=== PATIENT | female | born 1970 | race Caucasian/White ===

== ENCOUNTER 2017-10-21 18:27 | Emergency (ER) | payer OTHER ==
[~2017-10-21] VITALS: Ht 167.6 cm; Wt 64.6 kg
[~2017-10-21 18:27] MED LIST: COLLAGEN PO; IPRA1AER2 INH; MAGN250T3 PO; PYRI60TA2 PO; [UNRECOGNIZED DRUG - OTHER] PO
[2017-10-21 18:32] VITALS: TEMP 37; Ht 167.6 cm; Wt 64.6 kg
[2017-10-21] MEDS ORDERED: SODIUM CHLORIDE 0.9% 1000ML 1,000 ML IV STA (19:01)
--- NOTE | 2017-10-21 19:06 | EMERGENCY ROOM VISIT NOTE ---
History Report prepared by Yaima: Justin Huitron Under the Supervision of: Dr. Harinder Forte M.D. First contact with patient: 18:44 Chief Complaint: PAIN (GENERALIZED) Stated Complaint: WEAKNESS/NUMBNESS LEFT CALF, HEART PALPITATIONS History of Present Illness The patient is a 47 year old female who presents to the Emergency Room with complaints of constant numbness in her left calf that began this morning. She describes the numbness as severe. She has associated symptoms of rapid speech and bilateral chest pain that began today. Patient states the chest pain has resolved since coming to the ED. She adds that she has gotten 4 hours of sleep in past 3 nights. She adds she has felt "wobbly" the past couple of days. Patient denies back pain, headache, fevers, chills, nausea, and vomiting. She states she had similar symptoms a long time ago but did not get checked out by a doctor as the symptoms were resolved on their own. In addition, she was at Urgent Care prior to arrival for a sore on the left side of her mouth near a crowned tooth. Urgent Care informed her it was an ulcer. Patient has a history of bipolar disorder, which she states was later changed to a personality disorder, that she does not currently take medication for. She states that she has history of myasthenia gravis which she currently takes medication for. In addition, she has a history of a heart murmur. She adds that she took 3 amoxicillin prior to arrival. Patient states her last menstrual period was 3 weeks ago and that she has been having irregular cycles for the past 2 months. Patient denies wanting a CT scan. Patient adds that 8 days ago she was walking outside in her bare foot because she was feeling hot. After driving home without a coat and gloves on, she began having chest pains and "shooting pains" in her arms. She was checked out by EMS because she was worried about having frostbite. Source of History: patient Onset: this morning Position: other (Left calf) Symptom Intensity: severe Timing: constant Associated Symptoms: + chest pain, No fevers, No chills, No headache, No nausea, No vomiting Note: She has rapid speech. Review of Systems See HPI for pertinent positives and negatives. A total of ten systems were reviewed and were otherwise negative. Past Medical & Surgical Medical Problems: (1) Asthma (2) Bronchitis (3) Myasthenia gravis Family History Hypertension Social History Smoking Status: Former Smoker Alcohol Use: occasionally Drug Use: none Marital Status: Housing Status: lives with family Occupation Status: employed Current/Historical Medications Scheduled Ascorbic Acid (Ascorbic Acid), 500 MG PO 3XWK Cholecalciferol (Vitamin D3 Maximum Streng), 5,000 UNITS PO 3XWK Silver Sulfadiazine (Silvadene), 1 APPLN TOP BID Scheduled PRN Ipratropium-Albuterol (Combivent Respimat), 1 PUFF INH QID PRN for Wheezing Allergies Coded Allergies: Ciprofloxacin (Verified Allergy, Unknown, UNKN, 07/03/14) Physical Exam Vital Signs Date Time Temp Pulse Resp B/P (MAP) Pulse Ox O2 Delivery O2 Flow Rate FiO2 10/21/17 21:49 76 18 129/74 98 10/21/17 18:32 37.0 72 16 137/79 98 Room Air Physical Exam GENERAL: Awake, alert, anxious-appearing with pressure tangential speech, in no acute distress HENT: Normocephalic, atraumatic. Oropharynx unremarkable. Left lower gumline healing ulceration. No fluctuant. Dry mucous membranes. EYES: Normal conjunctiva. Sclera non-icteric. NECK: Supple. No nuchal rigidity. FROM. No JVD. RESPIRATORY: Clear to auscultation. CARDIAC: Regular rate, normal rhythm. Extremities warm and well perfused. Pulses equal. brisk cap refill. ABDOMEN: Soft, non-distended. No tenderness to palpation. No rebound or guarding. No masses. RECTAL: Deferred. MUSCULOSKELETAL: Chest examination reveals no tenderness. The back is symmetrical on inspection without obvious abnormality. There is no CVA tenderness to palpation. No joint edema. LOWER EXTREMITIES: Calves are equal size bilaterally and non-tender. No edema. No discoloration. NEURO: Normal sensorium. No sensory or motor deficits noted. SKIN: No rash or jaundice noted. warm/dry. Medical Decision & Procedures ER Provider Diagnostic Interpretation: Radiology results as stated below per my review and radiologist interpretation: CHEST 1 VW FRONT-NOT PORTABLE CLINICAL HISTORY: 47 years-old Female presenting with CHEST PAIN. TECHNIQUE: PA and lateral views of the chest were obtained. COMPARISON: None. FINDINGS: Cardiomediastinal silhouette normal. Lungs and pleural spaces clear. Post traumatic deformity of the left clavicle. Upper abdomen normal. IMPRESSION: 1. No acute cardiopulmonary disease. Electronically signed by: Yosef Calderon M.D. 10/21/2017 9:02 PM MANDIBLE MIN 4 VIEWS ROUTINE CLINICAL HISTORY: 47 years-old Female presenting with left lower gum pain / poor dentition. TECHNIQUE: 4 views of the mandible were obtained. COMPARISON: None. FINDINGS: Temporomandibular joints poorly assessed. Mandible grossly intact. No periapical lucencies are apparent. The maxillary alveolar processes are edentulous. IMPRESSION: No gross evidence of periapical lucencies or mandibular abnormality allowing for limited sensitivity of radiography. Electronically signed by: Yosef Calderon M.D. 10/21/2017 9:04 PM Laboratory Results 10/21/17 19:15 Red Blood Count 4.02, Mean Corpuscular Volume 92.3, Mean Corpuscular Hemoglobin 32.3, Mean Corpuscular Hemoglobin Concent 35.0, Mean Platelet Volume 9.8, Neutrophils (%) (Auto) 58.5, Lymphocytes (%) (Auto) 25.5, Monocytes (%) (Auto) 13.1, Eosinophils (%) (Auto) 2.1, Basophils (%) (Auto) 0.5, Neutrophils # (Auto ) 3.82, Lymphocytes # (Auto) 1.67, Monocytes # (Auto) 0.86, Eosinophils # (Auto ) 0.14, Basophils # (Auto) 0.03 10/21/17 19:15 Test 10/21/17 00:00 10/21/17 19:15 10/21/17 19:39 10/21/17 21:18 Urine Color YELLOW Urine Appearance CLEAR (CLEAR) Urine pH 7.5 (4.5-7.5) Urine Specific [place] 1.006 (1.000-1.030) Urine Protein NEG (NEG) Urine Glucose (UA) NEG (NEG) Urine Ketones NEG (NEG) Urine Occult Blood NEG (NEG) Urine Nitrite NEG (NEG) Urine Bilirubin NEG (NEG) Urine Urobilinogen NEG (NEG) Urine Leukocyte Esterase NEG (NEG) White Blood Count 6.54 K/uL (4.8-10.8) Red Blood Count 4.02 M/uL (4.2-5.4) Hemoglobin 13.0 g/dL (12.0-16.0) Hematocrit 37.1 % (37-47) Mean Corpuscular Volume 92.3 fL (80-100) Mean Corpuscular Hemoglobin 32.3 pg (25-34) Mean Corpuscular Hemoglobin Concent 35.0 g/dl (32-36) Platelet Count 226 K/uL (130-400) Mean Platelet Volume 9.8 fL (7.4-10.4) Neutrophils (%) (Auto) 58.5 % Lymphocytes (%) (Auto) 25.5 % Monocytes (%) (Auto) 13.1 % Eosinophils (%) (Auto) 2.1 % Basophils (%) (Auto) 0.5 % Neutrophils # (Auto) 3.82 K/uL (1.4-6.5) Lymphocytes # (Auto) 1.67 K/uL (1.2-3.4) Monocytes # (Auto) 0.86 K/uL (0.11-0.59) Eosinophils # (Auto) 0.14 K/uL (0-0.5) Basophils # (Auto) 0.03 K/uL (0-0.2) RDW Standard Deviation 42.7 fL (36.4-46.3) RDW Coefficient of Variation 12.6 % (11.5-14.5) Immature Granulocyte % (Auto) 0.3 % Immature Granulocyte # (Auto) 0.02 K/uL (0.00-0.02) Anion Gap 7.0 mmol/L (3-11) Est Creatinine Clear Calc Drug Dose 127.8 ml/min Estimated GFR () 133.7 Estimated GFR (Non- 115.4 BUN/Creatinine Ratio 10.8 (10-20) Calcium Level 8.3 mg/dl (8.5-10.1) Phosphorus Level 3.2 mg/dl (2.5-4.9) Magnesium Level 2.3 mg/dl (1.8-2.4) Total Bilirubin 0.3 mg/dl (0.2-1) Direct Bilirubin < 0.1 mg/dl (0-0.2) Aspartate Amino Transf (AST/SGOT) 64 U/L (15-37) Alanine Aminotransferase (ALT/SGPT) 108 U/L (12-78) Alkaline Phosphatase 50 U/L (45-117) Total Protein 7.0 gm/dl (6.4-8.2) Albumin 3.9 gm/dl (3.4-5.0) Lipase 151 U/L (73-393) Thyroid Stimulating Hormone (TSH) 1.270 uIu/ml (0.300-4.500) Human Chorionic Gonadotropin, Qual NEG (NEG) Ethyl Alcohol mg/dL < 3.0 mg/dl (0-3) Bedside Troponin I < 0.030 ng/ml (0-0.045) Laboratory results reviewed by me Medications Administered Medications (Trade) Dose Ordered Sig/Vitaliy Route Start Time Stop Time Status Last Admin Dose Admin Sodium Chloride 1,000 ml @ 999 mls/hr Q1H1M STAT IV 10/21/17 19:01 10/21/17 20:01 DC 10/21/17 19:52 999 MLS/HR ECG Indication: other (Numbness) Rate (beats per minute): 68 Rhythm: sinus rhythm Findings: PVC (Occasional), no acute ischemic change, other (Normal axis.) ED Course 1844: The patient was evaluated in room C4. A complete history and physical exam was performed. 2144: I reevaluated the patient. Discussed results and discharge instructions. She verbalized understanding and agreement. The patient is ready for discharge. Medical Decision I reviewed the patient's past medical history, medications, and the nursing notes as described above. Differential Diagnosis: ACS, pneumonia, bronchitis, dehydration, electrolyte abnormalities, endocrine abnormalities, manic episode The patient is a 47-year-old woman with a past medical history of myasthenia gravis, prior history of bipolar disorder previously on lithium but no longer on medications presents emergency department with numerous complaints including jitteriness, chest pain, numbness and tingling in extremities, hot flashes that have been ongoing today per history of present illness. Arrival the patient is anxious appearing, in no acute distress, afebrile stable vital signs. She has pressured speech with tangential thinking reports that she has not slept for the past 4 days. Of note patient deferring CT scan of her head at this time she does not want the radiation. Neuro intact, neurologic process not likely. Extremities warm and well-perfused with brisk cap refill. Labs unremarkable including WBC within normal limits. Chest x-ray negative. EKG unremarkable. Sx possibly related to manic episode or also to perimenopause give patient reports new onset irregular heavier menses for past 3 months. Unlikely to have emergent process at this time. Findings and plan for follow-up reviewed with patient. Patient agreeable and d/c'd per discharge instructions. Medication Reconcilliation Current Medication List: was personally reviewed by me Blood Pressure Screening Patient's blood pressure: Normal blood pressure Blood pressure disposition: Did not require urgent referral Impression Primary Impression: Substernal chest pain Additional Impressions: Bilateral leg paresthesia Arm paresthesia, left Arm paresthesia, right Scribe Attestation The scribe's documentation has been prepared under my direction and personally reviewed by me in its entirety. I confirm that the note above accurately reflects all work, treatment, procedures, and medical decision making performed by me. Departure Information Dispostion Home / Self-Care Referrals Carly Pradhan M.D. (PCP) Forms HOME CARE DOCUMENTATION FORM, IMPORTANT VISIT INFORMATION, WORK / SCHOOL INSTRUCTIONS Patient Instructions Bipolar Disorder, ED Chest Pain Atypical Unkn Cause, ED Paraesthesias, [facility] Additional Instructions Please follow up with your primary care physician in the next 1-3 days for re- evaluation. The cause of your symptoms is unclear at this time however may be related to your insomnia which also may be a sign of bipolar disorder and stanley. Otherwise, your exam, EKG, chest xray, and lab results did not show signs of an emergent condition at this time. Return to the emergency department for worsening symptoms as described in the accompanying instructions. Problem Qualifiers
[2017-10-21] MEDS ORDERED: SILV1CRE73 TOP (19:13)
[2017-10-21] MEDS ORDERED: CHOL1CAP74 PO (19:14)
[2017-10-21] MEDS ORDERED: ASCO500T16 PO (19:15)
[2017-10-21 19:30] LABS: BASO % 0.5 %; BASO ABS # 0.03 K/uL (0-0.2); EOS % 2.1 %; EOS ABS # 0.14 K/uL (0-0.5); HEMATOCRIT 37.1 % (37-47); IG# 0.02 K/uL (0.00-0.02); LYMPH % 25.5 %; LYMPH ABS # 1.67 K/uL (1.2-3.4); MEAN CELL VOLUME 92.3 fL (80-100); MEAN CORPUSCULAR HEMOGLOBIN 32.3 pg (25-34); MEAN PLATELET VOLUME 9.8 fL (7.4-10.4); MONO % 13.1 %; MONO ABS # 0.86 K/uL (0.11-0.59); NEUT % 58.5 %; NEUT ABS # 3.82 K/uL (1.4-6.5); PLATELET COUNT 226 K/uL (130-400); RED CELL DISTRIBUTION WIDTH CV 12.6 % (11.5-14.5); RED CELL DISTRIBUTION WIDTH SD 42.7 fL (36.4-46.3); WHITE BLOOD COUNT 6.54 K/uL (4.8-10.8)
[2017-10-21 19:50] LABS: ALBUMIN 3.9 gm/dl (3.4-5.0); ALT/SGPT 108 U/L (12-78); BLOOD UREA NITROGEN 6 mg/dl (7-18); CALCIUM 8.3 mg/dl (8.5-10.1); CARBON DIOXIDE 26 mmol/L (21-32); CREATININE 0.52 mg/dl (0.60-1.20); GLUCOSE 94 mg/dl (70-99); LIPASE 151 U/L (73-393); POTASSIUM 3.6 mmol/L (3.5-5.1); SODIUM 138 mmol/L (136-145)
[2017-10-21 19:59] LABS: ALKALINE PHOSPHATASE 50 U/L (45-117); AST/SGOT 64 U/L (15-37); PHOSPHORUS 3.2 mg/dl (2.5-4.9)
--- NOTE | 2017-10-21 21:03 | DIAGNOSTIC IMAGING REPORT ---
CHEST 1 VW FRONT-NOT PORTABLE CLINICAL HISTORY: 47 years-old Female presenting with CHEST PAIN. TECHNIQUE: PA and lateral views of the chest were obtained. COMPARISON: None. FINDINGS: Cardiomediastinal silhouette normal. Lungs and pleural spaces clear. Post traumatic deformity of the left clavicle. Upper abdomen normal. IMPRESSION: 1. No acute cardiopulmonary disease. Electronically signed by: Yosef Calderon M.D. 10/21/2017 9:02 PM Dictated Date/Time: 10/21/2017 9:01 PM
--- NOTE | 2017-10-21 21:06 | DIAGNOSTIC IMAGING REPORT ---
MANDIBLE MIN 4 VIEWS ROUTINE CLINICAL HISTORY: 47 years-old Female presenting with left lower gum pain / poor dentition. TECHNIQUE: 4 views of the mandible were obtained. COMPARISON: None. FINDINGS: Temporomandibular joints poorly assessed. Mandible grossly intact. No periapical lucencies are apparent. The maxillary alveolar processes are edentulous. IMPRESSION: No gross evidence of periapical lucencies or mandibular abnormality allowing for limited sensitivity of radiography. Electronically signed by: Yosef Calderon M.D. 10/21/2017 9:04 PM Dictated Date/Time: 10/21/2017 9:02 PM
[2017-10-21 21:49] VITALS: BP 129/74; PULSE 76; O2SAT 98
== END 2017-10-21 21:52 | disposition home or self-care (01) ==
LOC: C.EDB 18:28 → C.EDC 21:52
DX: R07.2 Precordial pain (principal); R20.2 Paresthesia of skin; J45.909 Unspecified asthma, uncomplicated; G70.00 Myasthenia gravis without (acute) exacerbation; Z87.891 Personal history of nicotine dependence; Z82.49 Family history of ischemic heart disease and other diseases of the circulatory system